=== PATIENT | female | born 1980 | race Caucasian/White ===

== ENCOUNTER 2016-06-08 21:46 | Emergency (ER) | payer OTHER, BC ==
[~2016-06-08] VITALS: Ht 167.6 cm; Wt 84.8 kg
[~2016-06-08 21:46] MED LIST: /ADVA50050 IN; /QUET10TA OR; ABIL5TAB PO; ADV250INH INH; ADVAIR 100/50 INH; ALBU17IN2 IN; ALLE25CA OR; AMBI12.52 PO; CLARITIN PO; CYMB1CAP PO; CYMB60CA3 PO; EFFE150C OR; EFFEXOR PO; FLEX10TA2 PO; IBUP80TA PO; MACR100C3 PO; PROV90AE IN; RISP1TAB OR; RISP2TAB12 OR; SERT100T OR; SIMV20TA2 OR; SING10TA31 OR; TRAZ100T OR; TRAZ50TA2 PO; VENL100T OR; VENTAER IN
[2016-06-08] MEDS ORDERED: CLAR10CA3 PO (22:00)
[2016-06-08] MEDS ORDERED: FLON1SPR (22:00)
[2016-06-08] MEDS ORDERED: METF1000 PO (22:00)
[2016-06-08] MEDS ORDERED: EXPOSURE KIT-ADULT 7 DAY SUPPLY PO ONE (23:45)
[2016-06-08] MEDS ORDERED: [UNRECOGNIZED DRUG - OTHER] IM ONE (23:45)
[2016-06-09] LABS: BASO # 0.1 K/mm3 (0.0-0.2); EOS # 0.8 K/mm3 (0.0-0.50); EOS % 10.6 % (0.0-3.0); LARGE UNSTAINED CELL # 0.2 K/mm3 (0.0-0.4); LARGE UNSTAINED CELL % 2.6 % (0.0-4.0); LYMPH # 2.8 K/mm3 (1.5-4.5); LYMPH % 36.4 % (24.0-44.0); MEAN CORPUSCULAR HEMOGLOBIN 28.4 pg (27.0-33.0); MEAN CORPUSCULAR HGB CONC 33.9 g/dl (32.0-36.5); MONO # 0.4 K/mm3 (0.0-0.8); MONO % 5.1 % (0.0-5.0); NEUTROPHILS # 3.4 K/mm3 (1.8-7.7); NEUTROPHILS % 44.3 % (36.0-66.0); PLATELET COUNT, AUTOMATED 294 k/mm3 (150-450); RED CELL DISTRIBUTION WIDTH 13.5 % (11.5-14.5); WHITE BLOOD COUNT 7.6 K/mm3 (4.0-10.0)
[2016-06-09 00:31] LABS: ALBUMIN 3.5 GM/DL (3.2-5.2); ALBUMIN/GLOBULIN RATIO 1.09 (1.00-1.93); ALKALINE PHOSPHATASE 59 U/L (45-117); ALT/SGPT 35 U/L (12-78); ANION GAP 6 MEQ/L (8-16); AST/SGOT 47 U/L (15-37); BILIRUBIN,TOTAL 0.2 MG/DL (0.2-1.0); BLOOD UREA NITROGEN 11 MG/DL (7-18); CALCIUM LEVEL 8.9 MG/DL (8.5-10.1); CARBON DIOXIDE LEVEL 28 MEQ/L (21-32); CHLORIDE LEVEL 105 MEQ/L (98-107); GLOMERULAR FILTRATION RATE > 60.0 (>60); GLUCOSE, FASTING 86 MG/DL (70-105); SODIUM LEVEL 139 MEQ/L (136-145); TOTAL PROTEIN 6.7 GM/DL (6.4-8.2)
[2016-06-09 00:40] VITALS: BP 137/79
[2016-06-09 00:50] LABS: CONTROL LINE INT CTR LINE PRESENT
[2016-06-09 10:41] LABS: HEPATITIS B SURFACE ANTIBODY POSITIVE (POSITIVE)
== END 2016-06-09 00:51 | disposition home or self-care (01) ==
LOC: M ED 22:58
DX: S61.235A Puncture wound without foreign body of left ring finger without damage to nail, initial encounter (principal); W46.1XXA Contact with contaminated hypodermic needle, initial encounter; Y92.9 Unspecified place or not applicable; Y93.F9 Activity, other caregiving; Y99.0 Civilian activity done for income or pay; Z77.21 Contact with and (suspected) exposure to potentially hazardous body fluids; Z79.899 Other long term (current) drug therapy

== ENCOUNTER 2018-02-19 23:01 | Emergency (ER) | payer OTHER, BC ==
[~2018-02-19] VITALS: Ht 167.6 cm; Wt 90.0 kg
[~2018-02-19 23:01] MED LIST changes: +ATOR1TAB21 PO; +CIPR-249 PO; +CLAR10CA3 PO; +FLON1SPR; +METF10004 PO; +PYRI1TAB5 PO
[2018-02-19] MEDS ORDERED: methylPREDNISolone INJ 125 MG/2 ML VIAL (J2930) IM ONE (23:45)
[2018-02-19] MEDS ORDERED: KETOROLAC 60 MG/2 ML VIAL (J1885) IM ONE (23:45)
[2018-02-20] MEDS ORDERED: NORCO, ANEXSIA 5/325MG TABLET (HYDROcodone/ACETAMINOPHEN) PO ONE
[2018-02-20] MEDS ORDERED: diazePAM 5 MG TAB PO ONE
[2018-02-20] MEDS ORDERED: NAPR-50 PO (00:02)
[2018-02-20] MEDS ORDERED: VALI5TAB PO (00:02)
[2018-02-20 00:13] VITALS: BP 162/75
== END 2018-02-20 00:15 | disposition home or self-care (01) ==
LOC: M ED 23:01
DX: S39.012A Strain of muscle, fascia and tendon of lower back, initial encounter (principal); X50.9XXA Other and unspecified overexertion or strenuous movements or postures, initial encounter; Y92.89 Other specified places as the place of occurrence of the external cause; F33.9 Major depressive disorder, recurrent, unspecified; F41.9 Anxiety disorder, unspecified; E28.2 Polycystic ovarian syndrome; B00.9 Herpesviral infection, unspecified; Z79.899 Other long term (current) drug therapy
CPT/HCPCS: 96372; 99283; J1885; J2930

== ENCOUNTER 2018-03-15 00:12 | Emergency (ER) | payer OTHER, BC ==
[~2018-03-15] VITALS: Ht 167.6 cm; Wt 92.7 kg
[~2018-03-15 00:12] MED LIST changes: +NAPR-50 PO; +VALI5TAB PO
[2018-03-15 00:13] VITALS: BP 136/92
[2018-03-15] MEDS ORDERED: NAPR-50 PO (00:40)
[2018-03-15] MEDS ORDERED: VALI5TAB PO (00:40)
[2018-03-15] MEDS ORDERED: NORCO 5/325MG TABLET (BULK FOR ED) PO ONE (00:45)
[2018-03-15] MEDS ORDERED: diazePAM 10 MG TAB PO ONE (00:45)
== END 2018-03-15 00:52 | disposition home or self-care (01) ==
LOC: M ED 00:12
DX: S39.012A Strain of muscle, fascia and tendon of lower back, initial encounter (principal); X50.0XXA Overexertion from strenuous movement or load, initial encounter; Y92.89 Other specified places as the place of occurrence of the external cause; Y99.0 Civilian activity done for income or pay; Y93.F2 Activity, caregiving, lifting; J45.909 Unspecified asthma, uncomplicated; E78.5 Hyperlipidemia, unspecified; Z79.899 Other long term (current) drug therapy

== ENCOUNTER 2019-05-07 22:37 | Emergency (ER) | payer BC, OTHER ==
[~2019-05-07] VITALS: Ht 167.6 cm; Wt 100.0 kg
[~2019-05-07 22:37] MED LIST changes: -/ADVA50050 IN; -/QUET10TA OR; +ADVA1AER2 IN; -NAPR-50 PO; +NAPR-837 PO; +SERO1TAB OR
[2019-05-07] MEDS ORDERED: ALLE12TA31 PO (22:45)
[2019-05-07] MEDS ORDERED: MONT10TA4 (22:45)
[2019-05-08] MEDS ORDERED: IPRATROPIUM 0.5MG/ALBUTEROL 2.5MG INH SOL UD 3ML (DUONEB)(J7620) As Ordered ONE (00:41)
[2019-05-08] MEDS ORDERED: IPRATROPIUM 0.5MG/ALBUTEROL 2.5MG INH SOL UD 3ML (DUONEB)(J7620) NEB ONE ×2 (00:45→01:30)
[2019-05-08 01:03] LABS: BASO # 0.1 10^3/uL (0.0-0.2); BASO % 1.2 % (0.0-1.0); EOS # 1.6 10^3/uL (0.0-0.5); HEMATOCRIT 43.2 % (36.0-47.0); HEMOGLOBIN 14.4 g/dl (12.0-15.5); LYMPH # 3.3 10^3/uL (1.5-5.0); LYMPH % 30.9 % (24.0-44.0); MEAN CORPUSCULAR HEMOGLOBIN 28.1 pg (27.0-33.0); MEAN CORPUSCULAR HGB CONC 33.3 g/dl (32.0-36.5); MEAN CORPUSCULAR VOLUME 84.2 fl (80.0-96.0); MONO # 0.7 10^3/uL (0.0-0.8); MONO % 6.3 % (0.0-5.0); NEUTROPHILS # 4.9 10^3/uL (1.5-8.5); NEUTROPHILS % 46.3 % (36.0-66.0); PLATELET COUNT, AUTOMATED 344 10^3/uL (150-450); RED BLOOD COUNT 5.13 10^6/uL (4.00-5.40); WHITE BLOOD COUNT 10.6 10^3/uL (4.0-10.0)
[2019-05-08] MEDS ORDERED: predniSONE 20 MG TAB PO ONE (01:30)
[2019-05-08 01:40] LABS: ALT/SGPT 28 U/L (12-78); BILIRUBIN,DIRECT < 0.1 MG/DL (0.0-0.2); BILIRUBIN,TOTAL 0.3 MG/DL (0.2-1.0); BLOOD UREA NITROGEN 9 MG/DL (7-18); CALCIUM LEVEL 8.9 MG/DL (8.5-10.1); CARBON DIOXIDE LEVEL 27 MEQ/L (21-32); CHLORIDE LEVEL 108 MEQ/L (98-107); GLOMERULAR FILTRATION RATE > 60.0 (>58); GLUCOSE, FASTING 89 MG/DL (70-100); POTASSIUM SERUM 4.1 MEQ/L (3.5-5.1); SODIUM LEVEL 140 MEQ/L (136-145); TOTAL PROTEIN 7.2 GM/DL (6.4-8.2)
[2019-05-08 02:03] LABS: INFLUENZA A AMPLIFICATION NEGATIVE (NEGATIVE); INFLUENZA B AMPLIFICATION NEGATIVE (NEGATIVE)
[2019-05-08 02:09] LABS: HCG, SERUM QUALITATIVE NEGATIVE (NEGATIVE)
[2019-05-08] MEDS ORDERED: PRED20TA PO (02:48)
[2019-05-08 03:19] VITALS: BP 142/87
--- NOTE | 2019-05-08 14:21 | REP ---
REASON: Cough and dyspnea. PRIORS: None. FINDINGS: The technique utilized in obtaining the radiograph has magnified the cardiac silhouette and accentuated the interstitial markings. The superior mediastinal structures are midline. The cardiac silhouette is unremarkable in size, shape, and position. The diaphragmatic surfaces of the lungs are regular, and the costophrenic angles are clear. The pulmonary castrejon are clear. The imaged osseous structures are intact. IMPRESSION: There is no acute cardiopulmonary disease. Electronically Signed by Naveen Garay DO 05/08/2019 02:23 P
== END 2019-05-08 03:22 | disposition home or self-care (01) ==
LOC: M ED 22:37
DX: J45.901 Unspecified asthma with (acute) exacerbation (principal); Z79.51 Long term (current) use of inhaled steroids; Z79.899 Other long term (current) drug therapy